=== PATIENT | male | born 1960 | race African-American/Black ===

== ENCOUNTER 2016-11-16 20:04 | Inpatient (IN) | payer MEDICARE, OTHER ==
[~2016-11-16] VITALS: Ht 177.8 cm; Wt 106.0 kg
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
--- NOTE | ~2016-11-16 | CT2 ---
[facility] A Service of [facility] & [facility] RADIOLOGY TEXT RESULTS PATIENT: KAREN WILLIAMSON LOCATION: [facility] 476-01 : 60 UNIT #: [id number] AGE: [address]: Brandon Redd III, MD SEX: M ORDER DR: [id number] [facility] [address] [facility]. [place], [place] [address] [id number] I MR#: [id number] #: [id number] NAME: KAREN WILLIAMSON : 1960 SEX: M STUDY DATE/TIME: 11/23/2016 14:56 UNIT: [facility] ROOM: [facility] STUDY DESCRIPTION: CT Abd and Pelv W Cont Attending Physician: Brandon Redd III, M.D. Ordering Physician: Valerie Kirk A.P.R.N. Primary Care Physician: No Primary Care Physician MEDICAL IMAGING REPORT This report is preliminary unless electronic signature is present EXAM CT abdomen and pelvis with contrast HISTORY A 56-year-old male with abdominal distension. Surgery for small bowel obstruction 2 days ago. Complains of mid abdominal pain and increasing white count and a possible sepsis. COMPARISON CT abdomen and pelvis 11/16/[address] exam was performed with one or more of the following radiation dose reduction techniques: automatic exposure control, adjustment of mA and/or kV according to patient size, and iterative reconstruction. Axial images performed through the abdomen and pelvis following IV contrast. Multiplanar reconstructed images are reviewed. FINDINGS Abdomen: Lung bases demonstrates bibasilar atelectasis. No effusions. Heart size within normal limits. The liver, spleen unremarkable. Gallbladder demonstrates some increased attenuation which may represent vicarious excretion of contrast or hyperdense sludge. No evidence of cholecystitis. Pancreas and adrenal glands unremarkable. There is a small amount of right perinephric edema nonspecific. There is a diffuse mesenteric thickening and reticulation throughout the abdominal mesentery with multiple mildly distended loops of small bowel with air-fluid levels. Contrast noted all way to the transverse colon. The small bowel wall thickening is nonspecific and may be related to recent obstruction. Postsurgical changes of the lower anterior abdominal [facility] A Service of [facility] RADIOLOGY TEXT RESULTS PATIENT: KAREN WILLIAMSON LOCATION: [facility] 476-01 : 60 UNIT #: [id number] AGE: [address]: Brandon Redd III, MD SEX: M ORDER DR: wall from apparent hernia repair. There is thickening of the left rectus abdominis muscle. In the left lower anterior abdominal wall, there is a low-attenuation peripherally enhancing collection measuring 4.4 x 9.1 x about 8.7 cm concerning for a soft tissue abscess, seroma or hematoma. Percutaneous aspiration and fluid analysis may be of benefit. Mild generalized induration and edema within the lower anterior abdominal wall. Pelvis: Bladder decompressed. The prostate, seminal vesicles appear normal. Postsurgical changes noted lower lumbar spine from apparent L5-S1 fusion and posterior laminectomy. IMPRESSION 1. Ugtw-uu-aegijcmn diffuse small bowel distension with focal areas of small bowel wall thickening and extensive mesenteric edema throughout the mid abdomen and also within the right pericolic gutter and along the right anterior pararenal space. Findings are nonspecific but could be indicative of some residual obstruction as well as the sequela of recent obstruction. Not originally appreciated, there is some increased attenuation of the tissues overlying the right mesentery and omentum. Etiology unclear. This could represent an unopacified bowel, but does raise a concern for possible blood components or hemorrhage. Correlation with patient's hemoglobin level may be of benefit. 2. The presence of contrast within the transverse colon may exclude high-grade obstruction; but again, this may represent residual contrast from the patient's original CT of 11/16/2016 and may be falsely misleading. The presence of vicarious excretion of contrast within the gallbladder would also support that the contrast within the colon may be more longstanding. 3. Postsurgical changes left lower anterior abdominal wall from hernia repair with kiran noted. Within the subcutaneous tissues overlying the site of a hernia, there is a large complex mass with areas of increased attenuation and low attenuation measuring 4.4 x 9.1 x 8.7 cm. This could represent a postoperative hematoma or potentially developing abscess. Correlation with a percutaneous aspiration may be of benefit. 4. Midline skin kiran and postsurgical changes from midline exploratory laparotomy. 5. Bibasilar infiltrates. Dictated by... Nathen España M.D. THIS IS AN ELECTRONICALLY VERIFIED REPORT Nathen España M.D. at 11/25/2016 8:06 AM JOHNIE/pipe [facility]. [facility] A Service of [facility] & [facility] RADIOLOGY TEXT RESULTS PATIENT: KAREN WILLIAMSON LOCATION: [place] [address] : [birth year] UNIT #: [id number] AGE: [address]: Brandon Redd III, MD SEX: M ORDER DR: TD: 11/23/2016 23:03 JOB #: [id number] MEDICAL IMAGING REPORT Page 1 of 1 COPY
--- NOTE | ~2016-11-16 | EKG ---
PATIENT: KAREN WILLIAMSON UNIT #: [id number] Ventricular Rate: 112 BPM Atrial Rate: 112 BPM P-R Interval: 156 ms QRS Duration: 74 ms Q-T Interval: 324 ms QTC Calculation(Bezet): 442 ms P Lancaster: 60 degrees Calculated R Lancaster: 20 degrees Calculated T Lancaster: 34 degrees Diagnosis Line: Sinus tachycardia Diagnosis Line: Nonspecific T wave abnormality Diagnosis Line: Abnormal ECG Diagnosis Line: When compared with ECG of 17-NOV-2016 09:52, Diagnosis Line: Nonspecific T wave abnormality now evident in Diagnosis Line: Lateral leads Diagnosis Line: Confirmed by PATY DUQUE MD ([id number]) on Diagnosis Line: 11/23/2016 5:03:11 PM INTERPRETING MD: NETO HUSAIN
--- NOTE | ~2016-11-16 | FU ---
[facility] Nutrition Therapy DATE: 11/23/16 Patient: KAREN WILLIAMSON Physician: HERMINIA Address: [address] [place] [address] Room/Bed: [address] [place] [address], Zip: [place] [address] Admit Date: 11/16/16 Date of : 60 Height: 5 10 Weight: 239 108.5 NUTRITION MONITORING/FOLLOW-UP: Reason: TPN follow-up 56 y/o male admitted for SBO Anthropometrics: ht: 5'10" wt: 239# (108 kg) BMI 34 -Admit weight: 239# (108 kg) Labs: Na+ 131, Glu 122, Accuchecks 124-129, Ca++ 8.0, Alb 3.1, Trig 163 Meds: dextrose 5%, milk of magnesia, lovenox, protonix, zofran, KCl I&O's: 2400/1190. BM 11/16 Skin: CSI mid-abd. No edema Estimated Nutrition Needs: 5137-3195 kcal (18-22 kcal/kg) 108-141 g protein (1.0-1.3 g/kg) Diet: Full Liquid Assessment: Chart reviewed, events noted. TPN has been d/c for this pt as of this morning 11/23/16. Pt has been started on a full liquid diet, has not been given anything yet. RD internet salesperson spoke with pt at bedside. Pt was lethargic and complaining of stomach pain. He did report that he has an appetite, feeling hungry. Not appropriate for complete nutrition interview at this time. Please see recommendations, RD to continue to follow. Dx: Inadequate oral intake r/t clinical condition, SBO AEB NPO x 3 days, TPN ordered -RESOLVED/NOT ACTIVE New Dx: Inadequate oral intake r/t current condition, SBO AEB TPN d/c'd, diet to be advanced Intervention: 1. Full liquid diet 2. TPN d/c Monitoring, Evaluation and Goals: 1. TPN; provide >80% estimated nutrient needs -RESOLVED/MET/NOT ACTIVE 2. Labs; monitor glucose, K+, phos, creat, GFR -IMPROVING 3. Weight; prevent unintentional weight loss -MET/IN PROGRESS 4. GI; promote regular GI function -IN PROGRESS [facility] Nutrition Therapy DATE: 11/23/16 Patient: KAREN WILLIAMSON Physician: HERMINIA Address: [address] [place] [address] Room/Bed: [address] [place] [address], Zip: [place] [address] Admit Date: 11/16/16 Date of : 60 Height: 5 10 Weight: 239 108.5 New goals (In addition to previous): 5. Oral intake; consume/tolerate >50% of all meals Recommendations: 1. Continue to advance diet as tolerated. Recommend GI soft/low fiber when diet advanced. 2. Encourage adequate intake. RD will f/u to assess pt's intake and order supplements if needed. RD will f/u per protocol as pt is at moderate nutritional risk. Respectfully, YAJAIRA MILES, Basting Marker Charlene Silveira MS, RD, LD Food and Nutritional Services [facility] cc: client file
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
--- NOTE | ~2016-11-16 | CR63 ---
[facility] A Service of [facility] RADIOLOGY TEXT RESULTS PATIENT: KAREN WILLIAMSON LOCATION: [facility]6- : 60 UNIT #: [id number] AGE: [address]: Brandon Redd III, MD SEX: M ORDER DR: [id number] [facility]. [place], [place] [address] [id number] I MR#: [id number] Acc #: [id number] NAME: KAREN WILLIAMSON : 1960 SEX: M STUDY DATE/TIME: UNIT: [facility] ROOM: [facility] STUDY DESCRIPTION: CR Chest 2 View Attending Physician: Brandon Redd III, M.D. Ordering Physician: Zheng López M.D. Primary Care Physician: Primary Care Physician No MEDICAL IMAGING REPORT This report is preliminary unless electronic signature is present EXAM Chest 2 views 11/22/2016 1138 hours HISTORY Shortness of air today, central line placement COMPARISON 11/19/2016 FINDINGS Upright PA and lateral views of the chest are limited by low lung volumes and lordotic positioning. The cardiac silhouette appears larger which I believe is technical. Right IJ catheter tip is at the junction of SVC and right atrium. Nasogastric tube is in the proximal stomach. There is plate-like atelectasis at the left base. There is no definite edema or effusion. IMPRESSION 1. The exam is limited by low lung volumes, large body habitus and lordotic positioning. Stable support equipment. 2. Cardiac silhouette appears larger which I believe is due to the lordotic positioning. 3. There is mild basilar atelectasis with no edema, effusion or pneumothorax seen. Dictated by... Sarah Dukes M.D. THIS IS AN ELECTRONICALLY VERIFIED REPORT Sarah Dukes M.D. at 11/22/2016 9:04 PM SMM/to TD: 11/22/2016 19:09 [facility] A Service of [facility] RADIOLOGY TEXT RESULTS PATIENT: KAREN WILLIAMSON LOCATION: [facility] 476-01 : 60 UNIT #: [id number] AGE: [address]: Brandon Redd III, MD SEX: M ORDER DR: JOB #: [id number] MEDICAL IMAGING REPORT Page 1 of 1 COPY
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
--- NOTE | ~2016-11-16 | CR4 ---
[facility] A Service of [facility] & [facility] RADIOLOGY TEXT RESULTS PATIENT: KAREN WILLIAMSON LOCATION: C2A 228-01 : 60 UNIT #: [id number] AGE: [address]: Brandon Redd III, MD SEX: M ORDER DR: [id number] [facility] [address]. [place], [place] [address] [id number] MR#: [id number] Acc #: [id number] NAME: KAREN WILLIAMSON : 1960 SEX: M STUDY DATE/TIME: 11/17/2016 08:30 UNIT: C2A ROOM: 228 STUDY DESCRIPTION: CR Abdomen Flat Upright or Dec Attending Physician: Brandon Redd III, M.D. Ordering Physician: Nick Tariq M.D. Primary Care Physician: Primary Care Physician No MEDICAL IMAGING REPORT This report is preliminary unless electronic signature is present EXAM Abdomen supine and upright 11/17/2016 0830 hours HISTORY Abdominal pain with constipation, small bowel obstruction since yesterday. COMPARISON CT abdomen and pelvis 11/16/2016. FINDINGS Supine and upright views of the abdomen demonstrate a nasogastric tube with the tip in the proximal stomach but side-hole at or above the GE junction. Suggest advancing 5-10 cm. There is a nonspecific bowel gas pattern. No definite distension seen. There is contrast material excreted within the bladder likely from yesterday's IV contrast administration 11/16/2016 2200 hours. IMPRESSION 1. The new nasogastric tube tip is in the proximal stomach with side-hole at or above the GE junction. Suggest advancing 5-10 cm. 2. No definite bowel distension seen. 3. The bladder is opacified with excreted contrast from IV contrast administration 11/16/2016 22:[address] scan. STAT * RESULT Dictated by... Sarah Dukes M.D. THIS IS AN ELECTRONICALLY VERIFIED REPORT Sarah Dukes M.D. at 11/17/2016 2:30 PM [facility] A Service of [facility] & [facility] RADIOLOGY TEXT RESULTS PATIENT: KAREN WILLIAMSON LOCATION: C2A 228-01 : 60 UNIT #: [id number] AGE: [address]: Brandon Redd III, MD SEX: M ORDER DR: NASRA/john TD: 11/17/2016 11:00 JOB #: [id number] MEDICAL IMAGING REPORT Page 1 of 1 COPY
--- NOTE | ~2016-11-16 | CR72 ---
[facility] A Service of [facility] & [facility] RADIOLOGY TEXT RESULTS PATIENT: KAREN WILLIAMSON LOCATION: [place] [address]- : 60 UNIT #: [id number] AGE: [address]: Brandon Redd III, MD SEX: M ORDER DR: [id number] [facility] [address] [facility] [place], [place] [address] [id number] I MR#: [id number] Acc #: [id number] NAME: KAREN WILLIAMSON : 1960 SEX: M STUDY DATE/TIME: 11/19/2016 16:18 UNIT: [facility] ROOM: [facility] STUDY DESCRIPTION: CR Chest Single View Portable Attending Physician: Brandon Redd III, M.D. Ordering Physician: Brandon Redd III, M.D. Primary Care Physician: No Primary Care Physician MEDICAL IMAGING REPORT This report is preliminary unless electronic signature is present EXAM Portable chest HISTORY Line placement today. FINDINGS Right IJ central line tip is at the junction SVC and right atrium. NG tube extends into the stomach with its tip 9 cm beyond the EG junction. No infiltrates or effusions. Cardiac and mediastinal contours are normal. IMPRESSION 1. No pneumothorax. Right IJ central line tip is at the junction SVC and right atrium. 2. NG tube extends into the stomach 9 cm beyond the EG junction. 3. Lungs are clear. Dictated by... Mike Gay M.D. THIS IS AN ELECTRONICALLY VERIFIED REPORT Mike Gay M.D. at 11/19/2016 11:47 PM ZBIGNIEW/pipe TD: 11/19/2016 21:20 JOB #: [id number] MEDICAL IMAGING REPORT Page 1 of 1 COPY
--- NOTE | ~2016-11-16 | EKG ---
PATIENT: KAREN WILLIAMSON UNIT #: [id number] Ventricular Rate: 78 BPM Atrial Rate: 78 BPM P-R Interval: 162 ms QRS Duration: 84 ms Q-T Interval: 380 ms QTC Calculation(Bezet): 433 ms P [place]: 54 degrees Calculated R [place]: 15 degrees Calculated T [place]: 21 degrees Diagnosis Line: Normal sinus rhythm Diagnosis Line: Normal ECG Diagnosis Line: No previous ECGs available Diagnosis Line: Confirmed by RIN VARGAS MD ([id number]) on Diagnosis Line: 11/19/2016 7:27:37 AM INTERPRETING MD: SAM HUSAIN
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
--- NOTE | ~2016-11-16 | CR63 ---
[facility] A Service of [facility] & [facility] RADIOLOGY TEXT RESULTS PATIENT: KAREN WILLIAMSON LOCATION: [facility]- : 60 UNIT #: [id number] AGE: [address]: Brandon Redd III, MD SEX: M ORDER DR: [id number] [facility] [address] [facility] [address] [facility]. [place], [place] [address] [id number] I MR#: [id number] Acc #: [id number] NAME: KAREN WILLIAMSON : 1960 SEX: M STUDY DATE/TIME: 11/18/2016 14:23 UNIT: C2A ROOM: 228 STUDY DESCRIPTION: CR Chest 2 View Attending Physician: Brandon Redd III, M.D. Ordering Physician: Valerie Kirk A.P.R.N. Primary Care Physician: No Primary Care Physician MEDICAL IMAGING REPORT This report is preliminary unless electronic signature is present EXAM Two-view chest. HISTORY Preop for bowel surgery, shortness of air. FINDINGS Two views of the chest demonstrates a nasogastric tube coursing through the mediastinum distal tip below the GE junction in the proximal port at the level of the GE junction. Lungs are clear. Heart, mediastinum and great vessels unremarkable. No effusions or pneumothorax. IMPRESSION NG tube in satisfactory position. No acute findings. Dictated by... Nathen España M.D. THIS IS AN ELECTRONICALLY VERIFIED REPORT Nathen España M.D. at 11/20/2016 5:12 PM Ethan TD: 11/18/2016 23:36 JOB #: [id number] MEDICAL IMAGING REPORT Page 1 of 1 COPY
--- NOTE | ~2016-11-16 | CT2 ---
[facility] A Service of [facility] RADIOLOGY TEXT RESULTS PATIENT: KAREN WILLIAMSON LOCATION: C2A : 60 UNIT #: [id number] AGE: [address]: Brandon Redd III, MD SEX: M ORDER DR: [id number] [facility] [address] [place], [place] [address] [id number] I MR#: [id number] Acc #: [id number] NAME: KAREN WILLIAMSON : 1960 SEX: M STUDY DATE/TIME: 11/16/2016 22:05 UNIT: C2A ROOM: 228 STUDY DESCRIPTION: CT Abd and Pelv W Cont Attending Physician: Brandon Redd III, M.D. Ordering Physician: Reji Millard D.O. Primary Care Physician: Primary Care Physician No MEDICAL IMAGING REPORT This report is preliminary unless electronic signature is present EXAM CT abdomen and pelvis with contrast INDICATION Severe abdominal pain and vomiting for the past 2 days. PROCEDURE Contrast-enhanced CT of the abdomen and pelvis. This CT exam was performed with one or more of the following radiation dose reduction techniques: automatic exposure control, adjustment of mA and/or kV according to patient size, and iterative reconstruction. COMPARISON None FINDINGS ABDOMEN WITH CONTRAST: included lung bases are clear. Liver, spleen, kidneys, adrenal glands, pancreas, gallbladder unremarkable. There is a complex left lateral mid abdominal ventral hernia. It measures up to 12.7 cm transverse dimension and up to 12.5 cm in craniocaudal extent. Small bowel loops are dilated proximal to the hernia measuring up to 3.7 cm as well as in the hernia sac. There is abrupt transition of small bowel loops as they enter and exit the hernia sac. PELVIS WITH CONTRAST: No pelvic mass or fluid. IMPRESSION Small bowel obstruction related to a left lateral mid abdominal ventral hernia which contains multiple dilated small bowel loops. Apparent transition points as the small bowel both enters and exits the hernia sac. [facility] A Service [facility] RADIOLOGY TEXT RESULTS PATIENT: KAREN WILLIAMSON LOCATION: C2A : 60 UNIT #: [id number] AGE: [address]: Brandon Redd III, MD SEX: M ORDER DR: Dictated by... Giorgi Tolliver M.D. THIS IS AN ELECTRONICALLY VERIFIED REPORT Giorgi Tolliver M.D. at 11/17/2016 10:00 PM Liam TD: 11/17/2016 08:59 JOB #: [id number] MEDICAL IMAGING REPORT Page 1 of 1 COPY
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
[2016-11-16 20:58] LABS: BASOPHIL% 0.3 % (0-2.5); EOSINOPHIL% 0.3 % (0.0-7.0); HEMATOCRIT 44.1 % (38.0-50.0); HEMOGLOBIN 14.4 gm/dL (13.0-16.0); LYMPHOCYTE# 1.3 X10e3 (1.0-3.5); LYMPHOCYTE% 10.2 % (17.0-45.0); MEAN CELL VOLUME 89.9 FL (83-96); MEAN CORPUSCULAR HEMOGLOBIN 29.4 PG (28-34); MEAN CORPUSCULAR HGB CONC 32.7 g/dL (30-36); MEAN PLATELET VOLUME 7.6 FL (6.5-11.5); MONOCYTE# 0.7 X10e3 (0-1.0); MONOCYTE% 5.6 % (3.0-12.0); NEUTROPHIL% 83.6 % (40-75); PLATELET COUNT 283 X10e3 (140-420); RED CELL DISTRIBUTION WIDTH 15.2 % (11.0-15.5); WHITE BLOOD COUNT 13.1 X10e3 (4.0-10.5)
[2016-11-16 20:59] LABS: DIFF IND NO
[2016-11-16 21:01] LABS: POC - CKMB 1.5 ng/mL (0.0-7.9); POC - TROPONIN <0.05 ng/mL (<=0.05)
[2016-11-16 21:27] LABS: ALBUMIN SERUM 4.5 g/dL (3.5-5.0); BILIRUBIN, DIRECT 0.1 mg/dL (0.0-0.2); BILIRUBIN,INDIRECT 0.6 mg/dL (0.0-0.9); BILIRUBIN,TOTAL 0.7 mg/dL (0.2-2.0); BUN/CREATININE RATIO 10.83; CALCIUM SERUM 9.4 mg/dL (8.4-10.2); CREATININE SERUM 1.2 mg/dL (0.6-1.4); GLOM FILT RATE Estimated 67.2 mL/min (>60); POTASSIUM 3.9 mmol/L (3.5-5.1)
[2016-11-17] MEDS ORDERED: NORVASC PO (00:04)
[2016-11-17] MEDS ORDERED: NORVASC10 MG PO (04:21)
[2016-11-17] MEDS ORDERED: ATORVASTATIN CA10 MG PO (04:23)
[2016-11-17] MEDS ORDERED: FLEXERIL10 MG PO (04:23)
[2016-11-17] MEDS ORDERED: HYDROCODON-ACE1 EAC5 PO (04:24)
[2016-11-17] MEDS ORDERED: HYZAAR 100-12.1 EACH (04:26)
[2016-11-17 05:33] LABS: BASOPHIL% 0.2 % (0-2.5); EOSINOPHIL# 0.1 X10e3 (0-0.7); EOSINOPHIL% 0.7 % (0.0-7.0); HEMATOCRIT 40.7 % (38.0-50.0); HEMOGLOBIN 13.2 gm/dL (13.0-16.0); LYMPHOCYTE# 2.9 X10e3 (1.0-3.5); LYMPHOCYTE% 22.5 % (17.0-45.0); MEAN CELL VOLUME 91.3 FL (83-96); MEAN CORPUSCULAR HEMOGLOBIN 29.6 PG (28-34); MEAN CORPUSCULAR HGB CONC 32.4 g/dL (30-36); MEAN PLATELET VOLUME 7.7 FL (6.5-11.5); NEUTROPHIL# 8.7 X10e3 (1.5-7.1); NEUTROPHIL% 68.6 % (40-75); PLATELET COUNT 254 X10e3 (140-420); RED BLOOD COUNT 4.46 X10e (3.90-5.60); RED CELL DISTRIBUTION WIDTH 15.4 % (11.0-15.5); WHITE BLOOD COUNT 12.7 X10e3 (4.0-10.5)
[2016-11-17 05:45] LABS: DIFF IND NO
[2016-11-17 06:09] LABS: BUN/CREATININE RATIO 10.9; CALCIUM SERUM 8.9 mg/dL (8.4-10.2); CREATININE SERUM 1.1 mg/dL (0.6-1.4); GLOM FILT RATE Estimated 86.5 mL/min (>60)
[2016-11-18 07:37] LABS: HEMOGLOBIN 12.5 gm/dL (13.0-16.0); MEAN CELL VOLUME 91.2 FL (83-96); MEAN CORPUSCULAR HEMOGLOBIN 29.1 PG (28-34); MEAN PLATELET VOLUME 7.5 FL (6.5-11.5); RED BLOOD COUNT 4.27 X10e (3.90-5.60); RED CELL DISTRIBUTION WIDTH 15.4 % (11.0-15.5); WHITE BLOOD COUNT 12.5 X10e3 (4.0-10.5)
[2016-11-18 08:08] LABS: ALBUMIN SERUM 3.5 g/dL (3.5-5.0); BILIRUBIN,TOTAL 1.1 mg/dL (0.2-2.0); BUN/CREATININE RATIO 12.5; CALCIUM SERUM 8.7 mg/dL (8.4-10.2); CREATININE SERUM 1.2 mg/dL (0.6-1.4); GLOM FILT RATE Estimated 77.9 mL/min (>60); POTASSIUM 4.1 mmol/L (3.5-5.1); PROTEIN TOTAL SERUM 6.1 g/dL (6.0-8.3)
[2016-11-18 16:20] LABS: URINE SOURCE CLEAN CATCH
[2016-11-18 16:34] LABS: URINE APPEARANCE CLEAR; URINE BILIRUBIN NEG (NEG); URINE BLOOD NEG (NEG); URINE COLOR YELLOW; URINE GLUCOSE NEG (NEG); URINE KETONE NEG (NEG); URINE LEUKOCYTE ESTERASE NEG (NEG); URINE NITRATE NEG (NEG); URINE PROTEIN NEG (NEG); URINE SPECIFIC GRAVITY 1.013 (1.003-1.035); URINE UROBILINOGEN 0.2 MG/DL (NEG)
[2016-11-18 16:48] LABS: CULTURE INDICATED? NO
[2016-11-18 17:34] LABS: HEMATOCRIT 38.9 % (38.0-50.0); HEMOGLOBIN 12.6 gm/dL (13.0-16.0); MEAN CELL VOLUME 90.5 FL (83-96); MEAN CORPUSCULAR HEMOGLOBIN 29.3 PG (28-34); MEAN CORPUSCULAR HGB CONC 32.4 g/dL (30-36); MEAN PLATELET VOLUME 7.2 FL (6.5-11.5); RED BLOOD COUNT 4.3 X10e (3.90-5.60); RED CELL DISTRIBUTION WIDTH 14.8 % (11.0-15.5); WHITE BLOOD COUNT 12.3 X10e3 (4.0-10.5)
[2016-11-18 18:00] LABS: CALCIUM SERUM 8.5 mg/dL (8.4-10.2); CREATININE SERUM 1.2 mg/dL (0.6-1.4); GLOM FILT RATE Estimated 77.9 mL/min (>60); POTASSIUM 3.9 mmol/L (3.5-5.1)
[2016-11-19 06:05] LABS: HEMATOCRIT 39.4 % (38.0-50.0); HEMOGLOBIN 12.6 gm/dL (13.0-16.0); MEAN CELL VOLUME 91.4 FL (83-96); MEAN CORPUSCULAR HEMOGLOBIN 29.2 PG (28-34); MEAN PLATELET VOLUME 7.7 FL (6.5-11.5); RED BLOOD COUNT 4.31 X10e (3.90-5.60); RED CELL DISTRIBUTION WIDTH 14.9 % (11.0-15.5); WHITE BLOOD COUNT 12.6 X10e3 (4.0-10.5)
[2016-11-19 06:59] LABS: BUN/CREATININE RATIO 9.09; CALCIUM SERUM 8.8 mg/dL (8.4-10.2); CREATININE SERUM 1.1 mg/dL (0.6-1.4); GLOM FILT RATE Estimated 86.5 mL/min (>60); PHOSPHOROUS 4.2 mg/dL (2.5-4.6); POTASSIUM 3.9 mmol/L (3.5-5.1)
[2016-11-20 04:20] LABS: HEMATOCRIT 37.1 % (38.0-50.0); HEMOGLOBIN 12.1 gm/dL (13.0-16.0); MEAN CELL VOLUME 90.7 FL (83-96); MEAN CORPUSCULAR HEMOGLOBIN 29.7 PG (28-34); MEAN CORPUSCULAR HGB CONC 32.7 g/dL (30-36); MEAN PLATELET VOLUME 7.5 FL (6.5-11.5); RED BLOOD COUNT 4.09 X10e (3.90-5.60); RED CELL DISTRIBUTION WIDTH 14.5 % (11.0-15.5); WHITE BLOOD COUNT 15.8 X10e3 (4.0-10.5)
[2016-11-20 04:58] LABS: ALBUMIN SERUM 3.3 g/dL (3.5-5.0); BILIRUBIN,TOTAL 1.4 mg/dL (0.2-2.0); BUN/CREATININE RATIO 9.33; CALCIUM SERUM 8.4 mg/dL (8.4-10.2); CREATININE SERUM 1.5 mg/dL (0.6-1.4); GLOM FILT RATE Estimated 59.5 mL/min (>60); PHOSPHOROUS 5.1 mg/dL (2.5-4.6); POTASSIUM 4.7 mmol/L (3.5-5.1); PROTEIN TOTAL SERUM 6.3 g/dL (6.0-8.3)
[2016-11-21 03:35] LABS: BASOPHIL% 0.3 % (0-2.5); EOSINOPHIL# 0.2 X10e3 (0-0.7); EOSINOPHIL% 1.7 % (0.0-7.0); HEMATOCRIT 33.3 % (38.0-50.0); HEMOGLOBIN 10.8 gm/dL (13.0-16.0); LYMPHOCYTE# 1.5 X10e3 (1.0-3.5); LYMPHOCYTE% 10.8 % (17.0-45.0); MEAN CELL VOLUME 91.3 FL (83-96); MEAN CORPUSCULAR HEMOGLOBIN 29.5 PG (28-34); MEAN CORPUSCULAR HGB CONC 32.3 g/dL (30-36); MEAN PLATELET VOLUME 7.7 FL (6.5-11.5); MONOCYTE# 1.4 X10e3 (0-1.0); MONOCYTE% 10.1 % (3.0-12.0); NEUTROPHIL# 10.5 X10e3 (1.5-7.1); NEUTROPHIL% 77.1 % (40-75); PLATELET COUNT 238 X10e3 (140-420); RED BLOOD COUNT 3.65 X10e (3.90-5.60); RED CELL DISTRIBUTION WIDTH 14.5 % (11.0-15.5); WHITE BLOOD COUNT 13.6 X10e3 (4.0-10.5)
[2016-11-21 03:38] LABS: DIFF IND NO
[2016-11-21 03:54] LABS: BUN/CREATININE RATIO 12.3; CALCIUM SERUM 7.8 mg/dL (8.4-10.2); CREATININE SERUM 1.3 mg/dL (0.6-1.4); GLOM FILT RATE Estimated 70.7 mL/min (>60); MAGNESIUM 2.6 mg/dL (1.6-3.0); PHOSPHOROUS 3.4 mg/dL (2.5-4.6); POTASSIUM 3.9 mmol/L (3.5-5.1)
[2016-11-22 04:06] LABS: BASOPHIL% 0.3 % (0-2.5); EOSINOPHIL# 0.3 X10e3 (0-0.7); EOSINOPHIL% 1.8 % (0.0-7.0); HEMATOCRIT 27.8 % (38.0-50.0); HEMOGLOBIN 9.1 gm/dL (13.0-16.0); LYMPHOCYTE# 1.8 X10e3 (1.0-3.5); LYMPHOCYTE% 11.3 % (17.0-45.0); MEAN CELL VOLUME 91.2 FL (83-96); MEAN CORPUSCULAR HEMOGLOBIN 29.8 PG (28-34); MEAN CORPUSCULAR HGB CONC 32.7 g/dL (30-36); MEAN PLATELET VOLUME 7.7 FL (6.5-11.5); MONOCYTE# 1.8 X10e3 (0-1.0); MONOCYTE% 10.9 % (3.0-12.0); NEUTROPHIL# 12.3 X10e3 (1.5-7.1); NEUTROPHIL% 75.7 % (40-75); PLATELET COUNT 248 X10e3 (140-420); RED BLOOD COUNT 3.05 X10e (3.90-5.60); RED CELL DISTRIBUTION WIDTH 14.6 % (11.0-15.5); WHITE BLOOD COUNT 16.3 X10e3 (4.0-10.5)
[2016-11-22 04:08] LABS: DIFF IND YES
[2016-11-22 04:17] LABS: CALCIUM SERUM 7.9 mg/dL (8.4-10.2); GLOM FILT RATE Estimated 97.1 mL/min (>60); MAGNESIUM 2.3 mg/dL (1.6-3.0); PHOSPHOROUS 3.1 mg/dL (2.5-4.6); POTASSIUM 3.9 mmol/L (3.5-5.1)
[2016-11-22 04:57] LABS: PLATELET ESTIMATE NORMAL (NORMAL)
[2016-11-22 04:59] LABS: HYPOCHROMIA SL
[2016-11-22 20:11] LABS: URINE APPEARANCE CLEAR; URINE BILIRUBIN NEG (NEG); URINE BLOOD NEG (NEG); URINE COLOR YELLOW; URINE GLUCOSE NEG (NEG); URINE KETONE NEG (NEG); URINE LEUKOCYTE ESTERASE NEG (NEG); URINE NITRATE NEG (NEG); URINE PROTEIN TRACE (NEG); URINE SPECIFIC GRAVITY 1.021 (1.003-1.035); URINE UROBILINOGEN 0.2 MG/DL (NEG)
[2016-11-23 04:32] LABS: BASOPHIL# 0.1 X10e3 (0-0.3); BASOPHIL% 0.3 % (0-2.5); EOSINOPHIL# 0.5 X10e3 (0-0.7); EOSINOPHIL% 2.5 % (0.0-7.0); HEMATOCRIT 27.5 % (38.0-50.0); HEMOGLOBIN 9.1 gm/dL (13.0-16.0); LYMPHOCYTE# 1.9 X10e3 (1.0-3.5); LYMPHOCYTE% 10.5 % (17.0-45.0); MEAN CELL VOLUME 90.9 FL (83-96); MEAN CORPUSCULAR HEMOGLOBIN 30.2 PG (28-34); MEAN CORPUSCULAR HGB CONC 33.3 g/dL (30-36); MEAN PLATELET VOLUME 7.2 FL (6.5-11.5); MONOCYTE# 1.8 X10e3 (0-1.0); MONOCYTE% 9.5 % (3.0-12.0); NEUTROPHIL# 14.2 X10e3 (1.5-7.1); NEUTROPHIL% 77.2 % (40-75); PLATELET COUNT 297 X10e3 (140-420); RED BLOOD COUNT 3.03 X10e (3.90-5.60); WHITE BLOOD COUNT 18.4 X10e3 (4.0-10.5)
[2016-11-23 04:33] LABS: DIFF IND NO
[2016-11-23 04:46] LABS: ALBUMIN SERUM 3.1 g/dL (3.5-5.0); GLOM FILT RATE Estimated 97.1 mL/min (>60); MAGNESIUM 2.3 mg/dL (1.6-3.0); POTASSIUM 3.6 mmol/L (3.5-5.1); PROTEIN TOTAL SERUM 6.3 g/dL (6.0-8.3)
[2016-11-23 16:42] LABS: HEMOGLOBIN 9.3 gm/dL (13.0-16.0); MEAN CELL VOLUME 91.1 FL (83-96); MEAN CORPUSCULAR HEMOGLOBIN 30.3 PG (28-34); MEAN CORPUSCULAR HGB CONC 33.3 g/dL (30-36); MEAN PLATELET VOLUME 7.3 FL (6.5-11.5); RED BLOOD COUNT 3.07 X10e (3.90-5.60); RED CELL DISTRIBUTION WIDTH 15.1 % (11.0-15.5); WHITE BLOOD COUNT 18.9 X10e3 (4.0-10.5)
[2016-11-24 08:29] LABS: HEMOGLOBIN 8.7 gm/dL (13.0-16.0); MEAN CELL VOLUME 90.7 FL (83-96); MEAN CORPUSCULAR HEMOGLOBIN 29.1 PG (28-34); MEAN CORPUSCULAR HGB CONC 32.1 g/dL (30-36); MEAN PLATELET VOLUME 7.3 FL (6.5-11.5); RED BLOOD COUNT 2.97 X10e (3.90-5.60); RED CELL DISTRIBUTION WIDTH 15.1 % (11.0-15.5); WHITE BLOOD COUNT 19.5 X10e3 (4.0-10.5)
[2016-11-24 08:49] LABS: ALBUMIN SERUM 2.9 g/dL (3.5-5.0); BILIRUBIN,TOTAL 1.3 mg/dL (0.2-2.0); BUN/CREATININE RATIO 14.54; CALCIUM SERUM 8.2 mg/dL (8.4-10.2); CREATININE SERUM 1.1 mg/dL (0.6-1.4); GLOM FILT RATE Estimated 86.5 mL/min (>60); MAGNESIUM 2.6 mg/dL (1.6-3.0); PHOSPHOROUS 4.1 mg/dL (2.5-4.6); POTASSIUM 5.2 mmol/L (3.5-5.1); PROTEIN TOTAL SERUM 5.5 g/dL (6.0-8.3)
[2016-11-25 02:24] LABS: HEMATOCRIT 26.1 % (38.0-50.0); HEMOGLOBIN 8.4 gm/dL (13.0-16.0); MEAN CELL VOLUME 90.8 FL (83-96); MEAN CORPUSCULAR HEMOGLOBIN 29.1 PG (28-34); MEAN PLATELET VOLUME 7.2 FL (6.5-11.5); RED BLOOD COUNT 2.88 X10e (3.90-5.60); RED CELL DISTRIBUTION WIDTH 14.8 % (11.0-15.5); WHITE BLOOD COUNT 19.6 X10e3 (4.0-10.5)
[2016-11-25 02:45] LABS: BILIRUBIN,TOTAL 1.3 mg/dL (0.2-2.0); CALCIUM SERUM 7.9 mg/dL (8.4-10.2); GLOM FILT RATE Estimated 97.1 mL/min (>60); MAGNESIUM 2.2 mg/dL (1.6-3.0); PHOSPHOROUS 4.2 mg/dL (2.5-4.6); POTASSIUM 4.4 mmol/L (3.5-5.1); PROTEIN TOTAL SERUM 6.1 g/dL (6.0-8.3)
[2016-11-26 02:39] LABS: BASOPHIL# 0.1 X10e3 (0-0.3); BASOPHIL% 0.5 % (0-2.5); EOSINOPHIL# 0.5 X10e3 (0-0.7); EOSINOPHIL% 2.9 % (0.0-7.0); HEMATOCRIT 27.1 % (38.0-50.0); HEMOGLOBIN 8.7 gm/dL (13.0-16.0); LYMPHOCYTE# 2.5 X10e3 (1.0-3.5); LYMPHOCYTE% 13.5 % (17.0-45.0); MEAN CELL VOLUME 91.4 FL (83-96); MEAN CORPUSCULAR HEMOGLOBIN 29.4 PG (28-34); MEAN CORPUSCULAR HGB CONC 32.2 g/dL (30-36); MEAN PLATELET VOLUME 7.5 FL (6.5-11.5); MONOCYTE# 1.7 X10e3 (0-1.0); MONOCYTE% 9.1 % (3.0-12.0); NEUTROPHIL# 13.9 X10e3 (1.5-7.1); PLATELET COUNT 403 X10e3 (140-420); RED BLOOD COUNT 2.96 X10e (3.90-5.60); RED CELL DISTRIBUTION WIDTH 15.2 % (11.0-15.5); WHITE BLOOD COUNT 18.8 X10e3 (4.0-10.5)
[2016-11-26 02:40] LABS: DIFF IND YES
[2016-11-26 02:59] LABS: CALCIUM SERUM 8.1 mg/dL (8.4-10.2); GLOM FILT RATE Estimated 97.1 mL/min (>60); POTASSIUM 4.1 mmol/L (3.5-5.1)
[2016-11-26 03:10] LABS: HYPOCHROMIA MOD; PLATELET ESTIMATE INCREASED (NORMAL)
[2016-11-26 03:11] LABS: ANISOCYTOSIS MOD; STOMATOCYTE PRESENT
[2016-11-26] MEDS ORDERED: LOPRESSOR PO (07:54)
[2016-11-26] MEDS ORDERED: AUGMENTIN PO (07:56)
[2016-11-26] MEDS ORDERED: LORTAB 7.5-3251 EACH PO (07:56)
== END 2016-11-26 09:25 | disposition home or self-care (01) | DRG 335 ==
LOC: CED 20:04 → C4C 22:50 → CEDOF 22:50 → C2A 22:50 → CED 23:06 → CEDOF 23:06 → C2A 23:46 → C4C 11-19 18:15
PROVIDERS: Emergency Medicine; Internal Medicine; Nurse Practitioner; Specialist; Surgery
PROC: 0DNW0ZZ Release Peritoneum, Open Approach (ICD-10-PCS; 2016-11-19)
PROC: 0WUF0JZ Supplement Abdominal Wall with Synthetic Substitute, Open Approach (ICD-10-PCS; principal; 2016-11-19 12:00)
PROC: 0DN80ZZ Release Small Intestine, Open Approach (ICD-10-PCS; 2016-11-19 12:00)
PROC: B24BZZZ Ultrasonography of Heart with Aorta (ICD-10-PCS; 2016-11-22)
DX: K43.6 Other and unspecified ventral hernia with obstruction, without gangrene (principal); A41.9 Sepsis, unspecified organism; D62 Acute posthemorrhagic anemia; E87.5 Hyperkalemia; K66.0 Peritoneal adhesions (postprocedural) (postinfection); I10 Essential (primary) hypertension; E78.5 Hyperlipidemia, unspecified; E66.9 Obesity, unspecified; Z68.34 Body mass index [BMI] 34.0-34.9, adult; F17.210 Nicotine dependence, cigarettes, uncomplicated; Z82.49 Family history of ischemic heart disease and other diseases of the circulatory system
CPT/HCPCS: 36415; 71010; 71020; 74020; 74177; 80048; 80053; 80076; 81003; 82150; 82274; 82308; 82553; 82947; 83605; 83690; 83735; 83880; 84100; 84132; 84134; 84443; 84478; 84484; 85025; 85027; 86850; 86900; 86901; 86923; 87040; 87070; 87086; 87493; 93005; 93306; 94010; 94640; 94760; 96361; 96374; 96375; 99285; C9113; J1170; J1650; J1885; J2250; J2270; J2405; J2543; J2765; J3010; J3480; J7042; Q4130; Q9967

== ENCOUNTER 2016-11-29 16:41 | Inpatient (IN) | payer MEDICARE, OTHER ==
[~2016-11-29] VITALS: Ht 177.8 cm; Wt 92.4 kg
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
--- NOTE | ~2016-11-29 | CT4 ---
[facility] A Service of [facility] [place] RADIOLOGY TEXT RESULTS PATIENT: KAREN WILLIAMSON LOCATION: C5B 548-01 : 60 UNIT #: [id number] AGE: [address]: Blanca Flowers MD SEX: M ORDER DR: [id number] [facility] [address] [place], [place] [address] [id number] I MR#: [id number] Acc #: [id number] NAME: KAREN WILLIAMSON : 1960 SEX: M STUDY DATE/TIME: 11/29/2016 21:45 UNIT: C5B ROOM: 8 STUDY DESCRIPTION: CT Abd and Pelv Wo Cont Attending Physician: Blanca Flowers M.D. Ordering Physician: Juan C Pierce M.D. Primary Care Physician: No Primary Care Physician MEDICAL IMAGING REPORT This report is preliminary unless electronic signature is present EXAM CT abdomen and pelvis without contrast, 11/29/2016. HISTORY 56-year-old male with abdominal pain, nausea, and vomiting for 2 days. Hypertension. History of surgery for small bowel obstruction earlier this month. COMPARISON CT abdomen and pelvis with contrast, 11/23/2016. PROCEDURE 5-mm noncontrasted axial images through the abdomen and pelvis. Enteric contrast not administered. Sagittal and coronal reformatted images were obtained. FINDINGS ABDOMEN: Midline laparotomy changes are seen with signs of prior left anterior abdominal ventral hernia repair. There is marked abnormal air-fluid distension of the stomach, and to a lesser degree, the duodenum, which could represent postoperative ileus changes. However, the jejunum, ileum, and colon appear relatively decompressed, particularly compared to 11/23/2016, negating a complete or high-grade bowel obstruction at this time. Contrast previously seen within the colon has passed in the interval. There is some linear subsegmental atelectasis in the lung bases without consolidation. Noncontrasted appearance of the liver, pancreas, adrenals, and kidneys is within normal limits. The spleen is diminutive in size, but stable. Suspected tiny gallstone without pericholecystic inflammation or biliary dilation. There is fluid and indurative change within the abdominal mesentery that STS. [facility] A Service of [facility] & [facility] [place] RADIOLOGY TEXT RESULTS PATIENT: KAREN WILLIAMSON LOCATION: C5B 548-01 : 60 UNIT #: [id number] AGE: [address]: Blanca Flowers MD SEX: M ORDER DR: may be related to patient's history of recent surgery, but this does appear slightly improved in comparison to the 11/23/2016 exam. No gross free intraperitoneal air is identified. Rounded fluid/soft tissue density collection is demonstrated within the left lateral anterior abdominal wall with somewhat bilobed configuration. The dominant component measures 8.2 x 3.9 cm, diminished in size from 9.1 x 4.4 cm on 11/23/2016. Its appearance is nonspecific, but may represent a postoperative hematoma or seroma, although infected fluid collection cannot be excluded on the basis of the study alone. PELVIS: Surgical changes in the distal descending colon-sigmoid colon junction. The urinary bladder is decompressed. Rectum is within normal limits. Prostate gland size is within normal limits. Diminished disc height at L5-S1. Laminectomy changes at L5-S1. IMPRESSION 1. Fluid and indurative changes in the abdominal mesentery are again noted, but may be slightly improved, compared to 11/23/2016, thought to represent improving postoperative edema. 2. The abnormal bowel dilation described on 11/23/2016 has markedly improved. However, on today's study, the stomach and duodenum but do remain markedly abnormally dilated with air and/or fluid. Findings could represent residual postoperative ileus. Consider NG tube decompression. The more distal small bowel loops and colon appeared decompressed. 3. There is a bilobed soft tissue cyst/fluid density collection in the left anterior abdominal wall. It is slightly smaller than on 11/23/2016. Mild infected fluid collection cannot be excluded; this may represent a postoperative seroma or hematoma. Consider correlation with aspiration, if desired, to confirm. 4. Surgical changes of the distal descending colon-sigmoid colon and signs of prior ventral abdominal hernia repair. 5. Suspected mild uncomplicated cholelithiasis. Dictated by... Carrie Anne M.D. THIS IS AN ELECTRONICALLY VERIFIED REPORT Carrie Anne M.D. at 11/30/2016 9:52 PM Eulogio TD: 11/30/2016 11:33 JOB #: [id number] MEDICAL IMAGING REPORT Page 1 of 1 COPY
--- NOTE | ~2016-11-29 | CR4 ---
[facility] A Service of [facility] RADIOLOGY TEXT RESULTS PATIENT: KAREN WILLIAMSON LOCATION: C2A 219- : 60 UNIT #: [id number] AGE: [address]: Blanca Flowers MD SEX: M ORDER DR: [id number] [id number] [facility]. [place], [place] [address] [id number] I MR#: [id number] Acc #: [id number] NAME: KAREN WILLIAMSON : 1960 SEX: M STUDY DATE/TIME: 12/01/2016 10:16 UNIT: C5B ROOM: 548 STUDY DESCRIPTION: CR Abdomen Flat Upright or Dec Attending Physician: Blanca Flowers M.D. Ordering Physician: Zheng López M.D. Primary Care Physician: No Primary Care Physician MEDICAL IMAGING REPORT This report is preliminary unless electronic signature is present EXAM Abdomen, flat and upright. INDICATIONS Abdominal pain, nausea and vomiting with small bowel surgery a few weeks ago. DATE OF EXAM 12/01/2016 COMPARISON 11/17/2016 FINDINGS Flat and upright views of the abdomen were obtained. The bowel gas pattern is normal. There are vertical skin kiran present. The nasogastric tube has its tip in the stomach. IMPRESSION The bowel gas pattern is normal. There are recent postoperative changes present. Dictated by... Haider Og M.D. THIS IS AN ELECTRONICALLY VERIFIED REPORT Haider Og M.D. at 12/02/2016 1:00 PM JOSE LUIS/gerri TD: 12/01/2016 17:38 [facility] A Service of [facility] RADIOLOGY TEXT RESULTS PATIENT: KAREN WILLIAMSON LOCATION: C2A 219 : 60 UNIT #: [id number] AGE: [address]: Blanca Flowers MD SEX: M ORDER DR: SUSANA #: [id number] MEDICAL IMAGING REPORT Page 1 of 1 COPY
--- NOTE | ~2016-11-29 | DS ---
Unit #: [id number] #: [id number] Patient: KAREN WILLIAMSON [id number] [address] [address] [id number] MR#: [id number] NAME: KAREN WILLIAMSON ROOM: 219 Age: Sex: M Admission Date: 11/30/2016 : 1960 Discharge Date: 12/03/2016 Attending Physician: Blanca Flowers M.D. Primary Care Physician: Primary Care Physician No DISCHARGE SUMMARY ADDENDUM DATE OF DISCHARGE December 03, 2016 The patient was seen by Dr. Duque who feels the patient's kidney function is now improving and he is safe to be discharged home. He will be discharged on meds as previously noted. Dictated by... Shubham Young/moris TD: 12/06/2016 09:02 JOB #: [id number] DISCHARGE SUMMARY Page 1 of 1 X Blanca Flowers MD X DISCHARGE SUMMARY
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
--- NOTE | ~2016-11-29 | DS ---
Unit #: [id number] #: [id number] Patient: KAREN WILLIAMSON [id number] [address] [address] [id number] MR#: [id number] NAME: KAREN WILLIAMSON ROOM: 219 Age: 56 Sex: M Admission Date: 11/30/2016 : 1960 Discharge Date: 12/04/2016 Attending Physician: Blanca Flowers M.D. Primary Care Physician: No Primary Care Physician DISCHARGE SUMMARY PRINCIPAL DIAGNOSES 1. Postoperative ileus, now resolved. 2. Sepsis secondary to clostridium difficile colitis. 3. Acute kidney injury, a combination of prerenal etiology with acute tubular necrosis. 4. Reactive thrombocytosis. 5. Mild iron deficiency anemia. 6. Mild high anion gap metabolic acidosis secondary to uremia (plus/minus) starvation, now resolved. 7. Hypertension. 8. Obesity. 9. Chronic pain syndrome, maintained on opiates. 10. Hyperlipidemia. 11. Hypokalemia, resolved. CONSULTANTS 1. Dr. Duque, nephrology. 2. Dr. Michel, general surgery. DIAGNOSTIC STUDIES IMAGING: CT scan of the abdomen and pelvis without contrast on November 29, 2016 - Postoperative edema in the abdominal mesentery is noted. Abnormal bowel dilatation is improved compared to November 23, but stomach and duodenum remain markedly abnormal. Bilobed soft tissue cyst in the left anterior abdominal wall most consistent with postoperative seroma. Surgical changes of distal descending colon, sigmoid colon noted. Uncomplicated cholelithiasis noted. KUB and upright on December 01, 2016 with normal bowel gas pattern. CLINICAL HISTORY AND HOSPITAL COURSE Mr. Williamson is a really nice 56-year-old male who presented to the emergency department with intractable nausea and vomiting. The patient had just been discharged from this facility on November 26 after presenting with a small bowel obstruction requiring exploratory laparotomy with lyses of adhesions and release of an incarcerated ventral hernia. In the emergency department the patient was found to have a leukocytosis and white blood cell count of 24.7, and CT scan revealed significantly distended stomach and duodenum. Creatinine was also found to be elevated at 4.3, up from a baseline of 1 upon discharge. For the above reasons, the patient was subsequently admitted. In regard to the patient's ileus, an NG tube was placed. He was made NPO, and general surgery was consulted. The patient was placed on scheduled Unit #: [id number] #: [id number] Patient: KAREN WILLIAMSON in addition to given Dulcolax suppositories. Over the course of the next 48 hours the patient's bowel function returned. Repeat KUB and upright revealed normal bowel gas pattern, and the patient began having bowel movements. He was started on a clear liquid diet and then a full liquid diet, which he is tolerating, and we will try a regular diet today. I will note the patient had a C. diff. done despite his lack of diarrhea, and it turned out to be positive. He did have significant leukocytosis upon presentation, as well, but initially was just felt to be reactive. However, at this point, given his C. diff., this may be more accounts receivable representative of a mild sepsis, but the sepsis component has resolved. Will complete a 2-week course of Flagyl. I suspect his causative risk factor was multiple antibiotics during last hospitalization. As noted above, the patient had elevated creatinine, as well, upon presentation. Nephrology was consulted, and the patient was maintained on IV fluids in addition to any nephrotoxic medications being discontinued. At time of dictation, creatinine has now decreased to 2.6, and I anticipate his associated ATN is resolving. Stable for discharge when creatinine is approximately 2, which will likely be on the morning of the . He will need followup BMP as an outpatient. The patient also had thrombocytosis, which was new this hospitalization. He has mild iron deficiency, but I suspect most of this is reactive in nature. Over the course of this hospitalization it has begun to decrease, and it can be followed up as an outpatient. The patient's other chronic conditions all remained stable. Assuming creatinine is somewhere is near 2 tomorrow, I think he can be safely discharged home. DISCHARGE CONDITION Stable. DISCHARGE STATUS Discharge to home. DISCHARGE MEDICATIONS 1. Metoprolol tartrate 50 mg b.i.d. 2. Atorvastatin 10 mg at bedtime. 3. Flagyl 500 mg p.o. t.i.d. for another 12 days. 4. Lortab 7.5/325 mg 1-2 tablets p.o. q.6 hours p.r.n. pain. 5. Ferrous gluconate 324 mg daily. DISCHARGE INSTRUCTIONS Patient was instructed to follow a regular diet. He can increase his activity as tolerated. Should be sure to maintain at least one bowel movement daily. FOLLOW-UP 1. Patient needs a followup basic metabolic panel one week after discharge done by his primary care physician to ensure creatinine has normalized. 2. He can follow up with general surgery as previously determined upon discharge in late October. Dictated by... Unit #: [id number] #: [id number] Patient: KAREN WILLIAMSON M.D. KEH/viki TD: 12/06/2016 09:12 JOB #: [id number] DISCHARGE SUMMARY Page 1 of 1 X Blanca Flowers MD X DISCHARGE SUMMARY
[~2016-11-29 16:41] MED LIST: ATORVASTATIN CA10 MG PO; AUGMENTIN PO; FLEXERIL10 MG PO; HYDROCODON-ACE1 EAC5 PO; HYZAAR 100-12.1 EACH; LOPRESSOR PO; LORTAB 7.5-3251 EACH PO; NORVASC PO; NORVASC10 MG PO
[2016-11-29 18:21] LABS: BASOPHIL% 0.1 % (0-2.5); EOSINOPHIL# 0.2 X10e3 (0-0.7); EOSINOPHIL% 0.8 % (0.0-7.0); HEMATOCRIT 35.8 % (38.0-50.0); LYMPHOCYTE# 1.9 X10e3 (1.0-3.5); LYMPHOCYTE% 7.7 % (17.0-45.0); MEAN CELL VOLUME 89.6 FL (83-96); MEAN CORPUSCULAR HEMOGLOBIN 29.9 PG (28-34); MEAN CORPUSCULAR HGB CONC 33.4 g/dL (30-36); MEAN PLATELET VOLUME 7.2 FL (6.5-11.5); MONOCYTE# 2.2 X10e3 (0-1.0); NEUTROPHIL# 20.3 X10e3 (1.5-7.1); NEUTROPHIL% 82.4 % (40-75); PLATELET COUNT 738 X10e3 (140-420); RED CELL DISTRIBUTION WIDTH 14.8 % (11.0-15.5); WHITE BLOOD COUNT 24.7 X10e3 (4.0-10.5)
[2016-11-29 18:22] LABS: DIFF IND YES
[2016-11-29 18:37] LABS: NUCLEATED RED BLOOD CELL 1 /100 (0); PLATELET ESTIMATE INCREASED (NORMAL); POLYCHROMASIA MOD
[2016-11-29 18:38] LABS: HYPOCHROMIA SL; TARGET CELLS SL
[2016-11-29 18:42] LABS: URINE SOURCE CLEAN CATCH
[2016-11-29 18:47] LABS: ALBUMIN SERUM 4.9 g/dL (3.5-5.0); BILIRUBIN, DIRECT 0.2 mg/dL (0.0-0.2); BILIRUBIN,INDIRECT 1.5 mg/dL (0.0-0.9); BILIRUBIN,TOTAL 1.7 mg/dL (0.2-2.0); BUN/CREATININE RATIO 6.97; CALCIUM SERUM 9.9 mg/dL (8.4-10.2); CREATININE SERUM 4.3 mg/dL (0.6-1.4); GLOM FILT RATE Estimated 16.6 mL/min (>60); POTASSIUM 3.3 mmol/L (3.5-5.1); PROTEIN TOTAL SERUM 9.3 g/dL (6.0-8.3)
[2016-11-29 18:48] LABS: URINE APPEARANCE CLOUDY; URINE BLOOD NEG (NEG); URINE COLOR DK YELLOW; URINE GLUCOSE NEG (NEG); URINE KETONE TRACE (NEG); URINE LEUKOCYTE ESTERASE TRACE (NEG); URINE NITRATE POS (NEG); URINE PROTEIN 2+ (NEG); URINE SPECIFIC GRAVITY 1.034 (1.003-1.035)
[2016-11-29 18:51] LABS: CULTURE INDICATED? YES; URBCS1 AUWI 0-2 /[HPF] (0-2); URINE BACTERIA AUWI NEG (NEGATIVE); URINE SQUAMOUS EPITHELIAL CELL OCC /[HPF]
[2016-11-30 03:59] LABS: HEMATOCRIT 32.9 % (38.0-50.0); HEMOGLOBIN 10.9 gm/dL (13.0-16.0); MEAN CELL VOLUME 90.2 FL (83-96); MEAN CORPUSCULAR HEMOGLOBIN 29.8 PG (28-34); MEAN CORPUSCULAR HGB CONC 33.1 g/dL (30-36); MEAN PLATELET VOLUME 7.2 FL (6.5-11.5); RED BLOOD COUNT 3.65 X10e (3.90-5.60); RED CELL DISTRIBUTION WIDTH 15.5 % (11.0-15.5); WHITE BLOOD COUNT 23.4 X10e3 (4.0-10.5)
[2016-11-30 05:11] LABS: BUN/CREATININE RATIO 8.6; CALCIUM SERUM 8.8 mg/dL (8.4-10.2); CREATININE SERUM 4.3 mg/dL (0.6-1.4); GLOM FILT RATE Estimated 16.6 mL/min (>60); POTASSIUM 4.1 mmol/L (3.5-5.1)
[2016-11-30 18:11] LABS: BUN/CREATININE RATIO 11.51; CALCIUM SERUM 8.8 mg/dL (8.4-10.2); CREATININE SERUM 3.3 mg/dL (0.6-1.4); GLOM FILT RATE Estimated 22.9 mL/min (>60); POTASSIUM 3.2 mmol/L (3.5-5.1)
[2016-12-01 07:20] LABS: HEMATOCRIT 34.5 % (38.0-50.0); HEMOGLOBIN 11.5 gm/dL (13.0-16.0); MEAN CELL VOLUME 89.3 FL (83-96); MEAN CORPUSCULAR HEMOGLOBIN 29.8 PG (28-34); MEAN CORPUSCULAR HGB CONC 33.4 g/dL (30-36); MEAN PLATELET VOLUME 7.3 FL (6.5-11.5); RED BLOOD COUNT 3.87 X10e (3.90-5.60); RED CELL DISTRIBUTION WIDTH 15.3 % (11.0-15.5); WHITE BLOOD COUNT 18.9 X10e3 (4.0-10.5)
[2016-12-01 07:58] LABS: ALBUMIN SERUM 4.2 g/dL (3.5-5.0); BILIRUBIN,TOTAL 1.2 mg/dL (0.2-2.0); BUN/CREATININE RATIO 14.68; CALCIUM SERUM 8.9 mg/dL (8.4-10.2); CREATININE SERUM 3.2 mg/dL (0.6-1.4); GLOM FILT RATE Estimated 23.8 mL/min (>60); MAGNESIUM 3.1 mg/dL (1.6-3.0); PHOSPHOROUS 7.4 mg/dL (2.5-4.6); PROTEIN TOTAL SERUM 8.3 g/dL (6.0-8.3)
[2016-12-01 07:58] LABS: IRON SERUM 25 ug/dL (45-182); TOTAL IRON BINDING CAPACITY 318 ug/dL (252-460); TRANSFERRIN 227 mg/dL (180-329); TRANSFERRIN SATURATION 8 % (20-50)
[2016-12-01 08:08] LABS: POTASSIUM 2.9 mmol/L (3.5-5.1)
[2016-12-02 06:00] LABS: BASOPHIL# 0.1 X10e3 (0-0.3); BASOPHIL% 0.4 % (0-2.5); EOSINOPHIL# 0.6 X10e3 (0-0.7); EOSINOPHIL% 3.2 % (0.0-7.0); HEMATOCRIT 33.9 % (38.0-50.0); HEMOGLOBIN 11.1 gm/dL (13.0-16.0); LYMPHOCYTE# 1.9 X10e3 (1.0-3.5); LYMPHOCYTE% 10.5 % (17.0-45.0); MEAN CELL VOLUME 89.7 FL (83-96); MEAN CORPUSCULAR HEMOGLOBIN 29.4 PG (28-34); MEAN CORPUSCULAR HGB CONC 32.8 g/dL (30-36); MEAN PLATELET VOLUME 7.4 FL (6.5-11.5); MONOCYTE# 1.6 X10e3 (0-1.0); NEUTROPHIL# 13.9 X10e3 (1.5-7.1); NEUTROPHIL% 76.9 % (40-75); PLATELET COUNT 787 X10e3 (140-420); RED BLOOD COUNT 3.78 X10e (3.90-5.60)
[2016-12-02 06:11] LABS: BUN/CREATININE RATIO 17.33; CALCIUM SERUM 9.2 mg/dL (8.4-10.2); GLOM FILT RATE Estimated 25.7 mL/min (>60); MAGNESIUM 3.3 mg/dL (1.6-3.0); PHOSPHOROUS 5.6 mg/dL (2.5-4.6)
[2016-12-02 06:21] LABS: DIFF IND YES
[2016-12-02 06:49] LABS: ANISOCYTOSIS SL; PLATELET ESTIMATE INCREASED (NORMAL)
[2016-12-03 06:01] LABS: HEMATOCRIT 32.9 % (38.0-50.0); MEAN CELL VOLUME 89.2 FL (83-96); MEAN CORPUSCULAR HEMOGLOBIN 29.8 PG (28-34); MEAN CORPUSCULAR HGB CONC 33.5 g/dL (30-36); MEAN PLATELET VOLUME 6.9 FL (6.5-11.5); RED BLOOD COUNT 3.69 X10e (3.90-5.60); WHITE BLOOD COUNT 16.4 X10e3 (4.0-10.5)
[2016-12-03 06:43] LABS: ALBUMIN SERUM 3.8 g/dL (3.5-5.0); BILIRUBIN,TOTAL 1.3 mg/dL (0.2-2.0); BUN/CREATININE RATIO 18.07; CALCIUM SERUM 9.1 mg/dL (8.4-10.2); CREATININE SERUM 2.6 mg/dL (0.6-1.4); GLOM FILT RATE Estimated 30.6 mL/min (>60); POTASSIUM 4.1 mmol/L (3.5-5.1)
[2016-12-03] MEDS ORDERED: LOPRESSOR PO (16:27)
[2016-12-03] MEDS ORDERED: METRONIDAZOLE PO (16:29)
[2016-12-03] MEDS ORDERED: DIGESTIVE PROB250 MG PO (16:30)
[2016-12-03] MEDS ORDERED: FERROUS GLUCON324 M1 PO (16:31)
== END 2016-12-03 17:44 | disposition home health service (06) | DRG 871 ==
LOC: CED 16:41 → C5B 11-30 00:30 → CEDOF 11-30 00:30 → CED 11-30 00:53 → CEDOF 11-30 02:08 → C5B 11-30 02:08 → C2A 12-02 12:42
PROVIDERS: Internal Medicine; Internal Medicine Nephrology; Specialist
PROC: 0D9670Z Drainage of Stomach with Drainage Device, Via Natural or Artificial Opening (ICD-10-PCS; principal; 2016-11-30)
DX: A41.9 Sepsis, unspecified organism (principal); N17.0 Acute kidney failure with tubular necrosis; E87.2 Acidosis; A04.7 Enterocolitis due to Clostridium difficile; K56.7 Ileus, unspecified; E83.39 Other disorders of phosphorus metabolism; K91.89 Other postprocedural complications and disorders of digestive system; I10 Essential (primary) hypertension; E86.0 Dehydration; Y83.8 Other surgical procedures as the cause of abnormal reaction of the patient, or of later complication, without mention of misadventure at the time of the procedure; Y73.8 Miscellaneous gastroenterology and urology devices associated with adverse incidents, not elsewhere classified; E87.6 Hypokalemia; F17.210 Nicotine dependence, cigarettes, uncomplicated; M54.9 Dorsalgia, unspecified; D47.3 Essential (hemorrhagic) thrombocythemia; E66.9 Obesity, unspecified; D50.9 Iron deficiency anemia, unspecified; G89.4 Chronic pain syndrome; Z68.33 Body mass index [BMI] 33.0-33.9, adult
CPT/HCPCS: 36415; 74020; 74176; 80048; 80053; 80076; 81003; 82550; 82947; 83540; 83550; 83690; 83735; 84100; 84132; 85025; 85027; 87040; 87086; 87493; 96361; 96374; 96375; 99285; J0696; J1170; J1650; J2405; J2765; J3490